=== PATIENT | female | born 1955 | race Caucasian/White ===

== ENCOUNTER 2022-06-30 11:46 | Inpatient (IN) | payer OTHER ==
[2022-06-30] MEDS ORDERED: ONDANSETRON 4 MG/2 ML VIAL ONE ×2 (12:08→17:19)
[2022-06-30] MEDS ORDERED: FAMOTIDINE 20 MG/2 ML VIAL IV ONE (12:08)
[2022-06-30] MEDS ORDERED: NA CHLORIDE 0.9% 1,000 ML ONE ×2 (12:08→14:34)
[2022-06-30 12:27] LABS: Urine Blood Negative (Negative); Urine Glucose Negative (Negative); Urine Protein 1+ (Negative); Urine pH 7.5 (5.0-7.0)
[2022-06-30 12:34] LABS: Absolute Lymphocytes (CBC) 1.4 K/uL (0.7-4.9); Lymphocytes % 11.5 % (15.3-44.8); MPV 8.8 fL (7.6-11.3)
[2022-06-30 12:38] LABS: Urine Crystals Unidentified Few /HPF (None Seen); Urine Mucus Slight /HPF (None Seen)
[2022-06-30 12:50] LABS: Albumin 4.4 g/dL (3.4-5.0); Bilirubin Total 0.7 mg/dL (0.2-1.0); Protein, Total 8.2 g/dL (6.4-8.2)
[2022-06-30] MEDS ORDERED: PROMETHAZINE INJ 25 MG/ML AMP ONE (13:18)
[2022-06-30] MEDS ORDERED: MORPHINE 4 MG/ML SYR ONE (13:18)
[2022-06-30] MEDS ORDERED: NA CHLORIDE 0.9% 50 ML IV ONE (13:19)
--- NOTE | 2022-06-30 13:39 | RAD REPORT ---
EXAM DESCRIPTION: CT - Abdomen Pelvis W Contrast - 06/30/2022 1:06 pm CLINICAL HISTORY: Abdominal pain COMPARISON: none. TECHNIQUE: Computed axial tomography of the abdomen pelvis was obtained. 100 cc Isovue-300 was admin istered intravenously. Oral contrast was not requested which limits evaluation of bowel and appendix All CT scans are performed using dose optimization technique as appropriate and may include automated exposure control or mA/KV adjustment according to patient size. FINDINGS: Mild fatty liver with small cysts. The spleen, pancreas, adrenals and kidneys are unremarkable. Mildly dilated jejunum and proximal ileum. Mid and distal ileum decompressed. Small to moderate amoun t ascites within the pelvis. . There is no evidence of diverticulitis. Small umbilical hernia IMPRESSION: These findings most likely represent a small bowel obstruction
--- NOTE | 2022-06-30 14:06 | ER ---
Nurse's Notes [facility] Name: Aurora Guy Age: 67 yrs Sex: Female : 1955 Arrival Date: 06/30/2022 Time: 11:47 Bed 7 Private MD: Diagnosis: Small Bowel Obstruction Presentation: 06/30 11:52 Chief complaint: N/V and upper abdominal pain since last night. Coronavirus screen: At this time, the client does not indicate any symptoms associated with coronavirus-19. Ebola Screen: No symptoms or risks identified at this time. Risk Assessment: Do you want to hurt yourself or someone else? Patient reports no desire to harm self or others. Onset of symptoms was June 29, 2022. 11:52 Method Of Arrival: Ambulatory 11:52 Acuity: JEYSON 3 hb 12:30 Initial Sepsis Screen: Does the patient meet any 2 criteria? No. Patient's initial mb8 sepsis screen is negative. Does the patient have a suspected source of infection? No. Patient's initial sepsis screen is negative. Triage Assessment: 12:15 General: Appears uncomfortable, ill, Behavior is cooperative, appropriate for age, mb8 restless. Historical: - Allergies: 11:54 No Known Allergies; hb - Social history:: Smoking status: Patient denies any tobacco usage or history of. Screenin:29 Abuse screen: Denies threats or abuse. Denies injuries from another. Nutritional mb8 screening: No deficits noted. Tuberculosis screening: No symptoms or risk factors identified. Fall Risk None identified. Assessment: 12:15 Pain: Complains of pain in abdomen Pain currently is 10 out of 10 on a pain scale. mb8 Quality of pain is described as sharp. GI: Bowel sounds present X 4 quads. Abd is soft Reports upper abdominal pain, nausea, vomiting, Patient currently denies diarrhea. GI: Patient currently denies bloating, bloody stool, constipation, incontinence, rectal bleeding. : No deficits noted. Denies burning with urination, cramping discharge, inability to void, incontinence, pain urinary frequency, urgency, vaginal bleeding, vaginal itching. 12:36 Reassessment: Patient and/or family updated on plan of care and expected duration. Pain mb8 level reassessed. Patient is alert, oriented x 3, equal unlabored respirations, skin warm/dry/pink. Patient states feeling better. 13:55 Reassessment: Patient and/or family updated on plan of care and expected duration. Pain mb8 level reassessed. Patient is alert, oriented x 3, equal unlabored respirations, skin warm/dry/pink. Updated patient on plan of care. Morphine and Phenergan have decreased pain and nausea. Vital Signs: 11:52 BP 165 / 92; Pulse 95; Resp 18; Temp 98.3; Pulse Ox 99% on R/A; Weight 72.57 kg; Height hb 5 ft. 4 in. (162.56 cm); Pain 10/10; 12:36 BP 166 / 77; Pulse 76; Resp 20; Pulse Ox 95% on R/A; mb8 12:45 BP 161 / 77; Pulse 84; Resp 16; Pulse Ox 96% ; mb8 13:56 BP 143 / 69; Pulse 67; Resp 16; Pulse Ox 97% on R/A; Pain 0/10; mb8 18:25 BP 154 / 60; Pulse 84; mb8 11:52 Body Mass Index 27.46 (72.57 kg, 162.56 cm) hb ED Course: 11:47 Patient arrived in ED. am2 11:54 Triage completed. hb 11:55 [facility] 11:55 Thierry Bowen MD is Attending Physician. [facility] 12:05 Jermain Shetty, DESIRE is Primary Nurse. mb8 12:15 Patient has correct armband on for positive identification. Placed in gown. Bed in low mb8 position. Call light in reach. Side rails up X2. Client placed on continuous cardiac and pulse oximetry monitoring. NIBP monitoring applied. Warm blanket given. 12:15 Arm band placed on. mb8 12:25 Inserted saline lock: 20 gauge in right antecubital area, using aseptic technique. mb8 Blood collected. 12:29 No provider procedures requiring assistance completed. mb8 13:[address] via wheelchair. mb8 13:08 CT Abd/Pelvis - IV Contrast Only In Process Unspecified. EDMS 14:06 Sheron Gomez MD is Hospitalizing Provider. [facility] Administered Medications: 12:23 Drug: Zofran (Ondansetron) 4 mg Route: IVP; Site: right antecubital; mb8 12:25 Drug: NS 0.9% 1000 ml Route: IV; Rate: 1 bolus; Site: right antecubital; mb8 12:25 Drug: Pepcid (famotidine) 20 mg Route: IVP; Site: right antecubital; mb8 13:25 Drug: morphine 4 mg Route: IVP; Infused Over: 4 mins; Site: right antecubital; mb8 14:12 Follow up: Response: No adverse reaction; Pain is decreased; RASS: Alert and Calm (0) mb8 13:29 Drug: Phenergan (promethazine) 12.5 mg Route: IM; Site: left deltoid; mb8 14:13 Follow up: Response: No adverse reaction; Nausea is decreased mb8 14:25 Drug: Zosyn (piperacillin-tazobactam) 3.375 grams Route: IVPB; Infused Over: 60 mins; mb8 Site: right antecubital; 15:00 Follow up: IV Status: Completed infusion mb8 Medication: 12:30 VIS not applicable for this client. 8 Outcome: 14:06 Decision to Hospitalize by Provider. Kashif 17:36 Admitted to Med/surg accompanied by tech, via wheelchair, room 414, with chart. mb8 17:36 Condition: stable 18:29 Patient left the ED. mb8 Signatures: Dispatcher [employer] EDMS Angela Aragon, RN RN Carmencita Schultz am2 Rebecca Reno, SPIKE DRIVER SPIKE DRIVER Jermain Narayanan RN RN mb8
--- NOTE | 2022-06-30 14:07 | EDPHYS ---
Physician Documentation [facility] Name: Aurora Guy Age: 67 yrs Sex: Female : 1955 Arrival Date: 06/30/2022 Time: 11:47 Bed 7 Private MD: ED Physician Thierry Bowen HPI: 06/30 12:00 This 67 yrs old Female presents to ER via Ambulatory with complaints of Abdominal Pain, jh7 Nausea/Vomiting. 12:00 The patient presents with abdominal pain in the upper abdomen. Onset: The jh7 symptoms/episode began/occurred last night. Associated signs and symptoms: Pertinent positives: nausea and vomiting, Pertinent negatives: diarrhea. The symptoms are described as burning. Historical: - Allergies: 11:54 No Known Allergies; hb - Social history:: Smoking status: Patient denies any tobacco usage or history of. ROS: 12:00 Constitutional: Negative for fever, chills, and weight loss, Eyes: Negative for injury, jh7 pain, redness, and discharge, ENT: Negative for injury, pain, and discharge, Cardiovascular: Negative for chest pain, palpitations, and edema, Respiratory: Negative for shortness of breath, cough, wheezing, and pleuritic chest pain, Back: Negative for injury and pain, MS/Extremity: Negative for injury and deformity, Skin: Negative for injury, rash, and discoloration, Neuro: Negative for headache, weakness, numbness, tingling, and seizure. 12:00 Abdomen/GI: Positive for abdominal pain, nausea and vomiting, Negative for diarrhea, constipation. 12:00 All other systems are negative. Exam: 12:00 Constitutional: This is a well developed, well nourished patient who is awake, alert, jh7 and in no acute distress. Head/Face: Normocephalic, atraumatic. Eyes: Pupils equal round and reactive to light, extra-ocular motions intact. Lids and lashes normal. Conjunctiva and sclera are non-icteric and not injected. Cornea within normal limits. Periorbital areas with no swelling, redness, or edema. Neck: Trachea midline, no thyromegaly or masses palpated, and no cervical lymphadenopathy. Supple, full range of motion without nuchal rigidity, or vertebral point tenderness. No Meningismus. Cardiovascular: Regular rate and rhythm with a normal S1 and S2. No gallops, murmurs, or rubs. Normal PMI, no JVD. No pulse deficits. Respiratory: Lungs have equal breath sounds bilaterally, clear to auscultation and percussion. No rales, rhonchi or wheezes noted. No increased work of breathing, no retractions or nasal flaring. Back: No spinal tenderness. No costovertebral tenderness. Full range of motion. Skin: Warm, dry with normal turgor. Normal color with no rashes, no lesions, and no evidence of cellulitis. MS/ Extremity: Pulses equal, no cyanosis. Neurovascular intact. Full, normal range of motion. Neuro: Awake and alert, GCS 15, oriented to person, place, time, and situation. Motor strength 5/5 in all extremities. Sensory grossly intact. Normal gait. 12:00 Abdomen/GI: Inspection: abdomen appears normal, Bowel sounds: normal, Palpation: soft, mild abdominal tenderness, in the right upper quadrant and left upper quadrant, Actively vomiting. Vital Signs: 11:52 BP 165 / 92; Pulse 95; Resp 18; Temp 98.3; Pulse Ox 99% on R/A; Weight 72.57 kg; Height hb 5 ft. 4 in. (162.56 cm); Pain 10/10; 12:36 BP 166 / 77; Pulse 76; Resp 20; Pulse Ox 95% on R/A; mb8 12:45 BP 161 / 77; Pulse 84; Resp 16; Pulse Ox 96% ; mb8 13:56 BP 143 / 69; Pulse 67; Resp 16; Pulse Ox 97% on R/A; Pain 0/10; mb8 18:25 BP 154 / 60; Pulse 84; mb8 11:52 Body Mass Index 27.46 (72.57 kg, 162.56 cm) hb MDM: 11:55 Patient medically screened. [facility] 13:50 Differential diagnosis: appendicitis, bowel obstruction, gastritis, Peritonitis. Data [facility] reviewed: vital signs, nurses notes, lab test result(s), radiologic studies, CT scan. Data interpreted: Pulse oximetry: is 97 %. Interpretation: normal. Counseling: I had a detailed discussion with the patient and/or guardian regarding: the historical points, exam findings, and any diagnostic results supporting the discharge/admit diagnosis, the need for further work-up and treatment in the hospital. Physician consultation: Carlos Mendes MD was contacted at 13:50, regarding admission, and will see patient would like admission per Dr. Sheron Gomez MD would like further tests performed, Abdominal upright x-ray for the morning, would like medications started, Broad-spectrum antibiotic. 06/30 12:03 Order name: CBC with Diff; Complete Time: 12:43 7 06/30 12:03 Order name: CMP; Complete Time: 12:58 7 06/30 12:03 Order name: Lipase; Complete Time: 12:58 7 06/30 12:03 Order name: Urine Microscopic Only; Complete Time: 12:43 7 06/30 12:03 Order name: Flu; Complete Time: 12:58 [facility] 06/30 12:27 Order name: Urine Dipstick-Ancillary; Complete Time: 12:43 EDMS 06/30 14:23 Order name: CBC with Automated Diff EDMS 06/30 14:23 Order name: CBC with Automated Diff EDMS 06/30 14:23 Order name: Comprehensive Metabolic Panel EDMS 06/30 14:23 Order name: Comprehensive Metabolic Panel EDMS 06/30 14:23 Order name: Magnesium EDMS 06/30 14:23 Order name: Magnesium EDMS 06/30 14:23 Order name: Phosphorus EDMS 06/30 14:23 Order name: Phosphorus EDMS 06/30 12:03 Order name: CT Abd/Pelvis - IV Contrast Only; Complete Time: 13:41 [facility] 06/30 12:03 Order name: IV Saline Lock; Complete Time: 12:27 [facility] 06/30 12:03 Order name: Labs collected and sent; Complete Time: 12:27 [facility] 06/30 12:03 Order name: Urine Dipstick-Ancillary (obtain specimen); Complete Time: 12:27 [facility] 06/30 14:23 Order name: CONS Physician Consult EDMS 06/30 14:23 Order name: NPO EDMS 06/30 14:23 Order name: Abdomen 1 View (KUB) EDMS 06/30 15:23 Order name: SARS RAPID aa5 06/30 16:10 Order name: SARS-COV-2 Antigen Rapid EDMS Administered Medications: 12:23 Drug: Zofran (Ondansetron) 4 mg Route: IVP; Site: right antecubital; mb8 12:25 Drug: NS 0.9% 1000 ml Route: IV; Rate: 1 bolus; Site: right antecubital; mb8 12:25 Drug: Pepcid (famotidine) 20 mg Route: IVP; Site: right antecubital; mb8 13:25 Drug: morphine 4 mg Route: IVP; Infused Over: 4 mins; Site: right antecubital; mb8 14:12 Follow up: Response: No adverse reaction; Pain is decreased; RASS: Alert and Calm (0) 8 13:29 Drug: Phenergan (promethazine) 12.5 mg Route: IM; Site: left deltoid; mb8 14:13 Follow up: Response: No adverse reaction; Nausea is decreased mb8 14:25 Drug: Zosyn (piperacillin-tazobactam) 3.375 grams Route: IVPB; Infused Over: 60 mins; mb8 Site: right antecubital; 15:00 Follow up: IV Status: Completed infusion mb8 Disposition Summary: 06/30/22 14:06 Hospitalization Ordered Hospitalization Status: Inpatient Admission [facility] Provider: Sheron Gomez [facility] Condition: Stable [facility] Problem: new [facility] Symptoms: have improved [facility] Bed/Room Type: Standard [facility] Room Assignment: [facility](06/30/22 16:35) Diagnosis - Small Bowel Obstruction [facility] Forms: - Medication Reconciliation Form [facility] - SBAR form [facility] Addendum: 07/05/2022 04:01 Co-signature as Attending Physician, Thierry Bowen MD I agree with the assessment and c [facility] plan of care. Signatures: Dispatcher [employer] Jackeline Rivera RN RN dw Anderson, Corey, MD MD cha Baxter, Heather, RN RN Rebecca Reno, TOOLING SUPERVISOR TOOLING SUPERVISOR [facility] Jermain Shetty RN RN mb8 Corrections: (The following items were deleted from the chart) 06/30 16:35 14:06 [facility] 17:52 13:41 NG Tube ordered. [facility]
[2022-06-30] MEDS ORDERED: LIDOCAINE VISCOUS 2% SOLN 15 ML UDC ONE (14:14)
[2022-06-30] MEDS ORDERED: PIPERACIL/TAZO 3.375 GM VIAL IV ONE (14:14)
[2022-06-30] MEDS ORDERED: NA CHLORIDE 0.9% 100 ML IV ONE (14:15)
[2022-06-30] MEDS ORDERED: ENOXAPARIN 40 MG/0.4 ML SQ ONE (14:34)
[2022-06-30] MEDS ORDERED: Levofloxacin500mg IV 500 MG/100 ML BAG IV ONE (14:34)
[2022-06-30] MEDS: NA CHLORIDE 0.9% 1,000 ML IV SCH ×2 (14:59→23:00)
[2022-06-30] MEDS: ENOXAPARIN 40 MG/0.4 ML SQ SCH (15:00)
[2022-06-30] MEDS: Levofloxacin500mg IV 500 MG/100 ML BAG IV SCH (15:03)
[2022-06-30 15:15] VITALS: BMI 27.4
[2022-06-30 16:10] LABS: SARS-CoV-2 Antigen Rapid Res Negative (Negative)
--- NOTE | 2022-06-30 16:33 | P.CNS ---
Date of Consult: 06/30/22 Reason for consult: Small bowel obstruction History of present illness: Patient is a 67-year-old female comes in with 1 day history diffuse abdominal pain associated with nausea and vomiting. Her last bowel movement was this a.m. Patient has not had a episode of flatus today. Patient has not had similar episodes in the past. After medication, her vomiting has subsided and her nausea has improved. Patient pain is better as well. Patient denies sore throat, runny nose, cough, headaches, dizziness, fever or chills. Review of systems: Otherwise unremarkable Past medical history: Hypertension and a brain aneurysm which does not require any intervention according to the patient Past surgical history: Ovarian cyst excision, hysterectomy, bilateral salpingo- oophorectomy, appendectomy Allergies: None Social history: Patient does not smoke or drink alcohol Family history: Noncontributory Vital signs: Stable, afebrile Physical exam: Awake alert oriented x3 Head and neck exam: Cranial nerves II through XII grossly within normal limits, no neck masses, no JVD, throat clear and neck supple Chest: Clear Heart: S1-S2 Abdomen: Soft, mild distention, minimal diffuse tenderness, slightly hypoactive bowel sounds with no evidence of peritonitis Extremity: Neurovascular intact, nontender Neuro: Nonfocal Diagnostic data: White count is 12.5, electrolytes are within normal limits and CT of the abdomen and pelvis shows dilatation of the proximal small bowel mild in nature with normal size ileum. Small amount of ascites is seen as well. Assessment: Ileus versus small bowel obstruction. Patient probably has partial bowel obstruction. Plan/recommendation: Admit, n.p.o., IV fluids, IV antibiotics, NG tube if patien t has the need to vomit and serial abdominal exams. We will repeat the abdominal x-ray in the morning. Hopefully, patient will improve with conservative measures, there is a small chance patient may require surgical intervention. Plan of care discussed in detail with the patient. We will follow the patient closely. CC: Dr. Link's office
[2022-06-30] MEDS ORDERED: HYDROMORPHONE HCL 0.5 MG/0.5 ML INJ ONE (17:19)
[2022-06-30] MEDS: ONDANSETRON 4 MG/2 ML VIAL IV PRN (17:34)
[2022-06-30] MEDS: HYDROMORPHONE HCL 0.5 MG/0.5 ML INJ IV PRN (17:34)
[2022-06-30] MEDS: METRONIDAZOLE 500mg IVPB 500 MG/100 ML BAG IV SCH (18:48)
[2022-07-01 01:37] VITALS: O2SAT 98
[2022-07-01 04:55] LABS: Absolute Lymphocytes (CBC) 1.6 K/uL (0.7-4.9); Hematocrit 34.2 % (36.0-45.0); Lymphocytes % 20.2 % (15.3-44.8); MCV 92.1 fL (80-100); RBC Red Blood Cell Count 3.72 M/uL (3.86-4.86)
[2022-07-01 05:15] LABS: Albumin 2.9 g/dL (3.4-5.0); Bilirubin Total 0.4 mg/dL (0.2-1.0); Phosphorus 2.5 mg/dL (2.5-4.9); Potassium 3.5 mmol/L (3.5-5.1); Protein, Total 5.6 g/dL (6.4-8.2)
[2022-07-01] MEDS: METRONIDAZOLE 500mg IVPB 500 MG/100 ML BAG IV SCH ×4 (05:35→18:46)
[2022-07-01] MEDS: NA CHLORIDE 0.9% 1,000 ML IV SCH ×2 (05:36→15:21)
[2022-07-01] MEDS ORDERED: KCL 20 MEQ/100 mL IVPB 20 MEQ/100 ML BAG IV SCH (06:00)
--- NOTE | 2022-07-01 08:18 | RAD REPORT ---
EXAM DESCRIPTION: RAD - Abdomen W Erect - 07/01/2022 6:32 am CLINICAL HISTORY: Follow-up small bowel obstruction Pain COMPARISON: Abdomen Pelvis W Contrast dated 06/30/2022 FINDINGS: There is moderate stool present throughout the colon. A few mildly prominent small bowel l oops in the left abdomen seen. Overall, this appears improved since prior CT. No suspicious calcifica tions. No significant bony findings. No pneumoperitoneum. IMPRESSION: Mild improvement in the bowel gas pattern seen since comparative study.
--- NOTE | 2022-07-01 08:22 | P.PN ---
Date of Service: 07/01/22 Subjective: Patient is passing gas. Pain is better. Patient has not had a bowel movement. Objective: Vital signs stable, afebrile. White count is normal. Abdominal x- ray shows some improvement. Abdomen: Soft, nondistended, bowel sounds present, no peritonitis and no tenderness Assessment: Small bowel obstructionimproving Plan: Sips of clear liquids and advace slowly as tolerated. Ambulate. Anticipate discharge in 24 to 48 hours. CC:
[2022-07-01] MEDS: ENOXAPARIN 40 MG/0.4 ML SQ SCH (08:23)
[2022-07-01] MEDS: ACETAMINOPHEN 500 MG TAB PO PRN ×2 (08:23→16:29)
--- NOTE | 2022-07-01 11:48 | P.HP ---
Certification for Inpatient Patient admitted to: Inpatient With expected LOS: >2 Midnights Patient will require the following post-hospital care: None Practitioner: I am a practitioner with admitting privileges, knowledge of patient current condition, hospital course, and medical plan of care. Services: Services provided to patient in accordance with Admission requirements found in Title 42 Section 412.3 of the Code of Federal Regulations Patient History Date of Service: 06/30/22 Reason for admission: Small bowel obstruction History of Present Illness: Patient is a 67-year-old female who came to the hospital with abdominal pain. Patient was found to have a small-bowel obstruction. Patient has had multiple gynecologic surgeries. Her last surgery was an appendectomy which she states was secondary to adhesions. She started having intractable nausea and vomiting as well as abdominal pain yesterday evening. She came into the emergency room t jose with vomiting and abdominal pain as well. Pain was mainly in the lower abdominal quadrants. CT scan revealed small bowel obstruction. NG tube was placed in the emergency room. Patient was admitted for monitoring of her small bowel obstruction. Patient's last bowel movement was this morning. But she has not had any flatus since that time. She will be admitted for inpatient hospitalization. Allergies No Known Allergies Allergy (Verified 06/30/22 14:30) Home Medications: Lisinopril [Zestril] 5 mg PO DAILY 07/01/22 - Past Medical/Surgical History Past Medical History: Patient denies medical history -: Hysterectomy and bilateral oophorectomy -: appendectomy - Family History Father Family History: Reviewed- Non-Contributory - Social History Smoking Status: Never smoker Alcohol use: No CD- Drugs: No Review of Systems 10-point ROS is otherwise unremarkable Physical Examination - Vital Signs Temperature: 96.6 F Blood Pressure: 149/64 Pulse: 68 Respirations: 20 Pulse Ox (%): 96 - Physical Exam General: Alert, In no apparent distress, Oriented x3 HEENT: Atraumatic, PERRLA, Mucous membr. moist/pink, EOMI, Sclerae nonicteric Neck: Supple, 2+ carotid pulse no bruit, No LAD, Without JVD or thyroid abnorma lity Respiratory: Clear to auscultation bilaterally, Normal air movement Cardiovascular: Regular rate/rhythm, Normal S1 S2 Gastrointestinal: No tenderness, No masses, No rebound, No guarding, Absent bowel sounds Musculoskeletal: No clubbing, No swelling, No tenderness Integumentary: No rashes Neurological: Normal gait, Normal speech, Normal strength at 5/5 x4 extr, Normal tone, Sensation intact, Cranial nerves 3-12 intact, Normal affect Lymphatics: No axilla or inguinal lymphadenopathy - Studies Laboratory Data (last 24 hrs) 06/30/22 12:20: Sodium 137, Potassium 4.0, BUN 11, Creatinine 1.15, Glucose 127 H, Total Bilirubin 0.7, AST 45 H, ALT 63, Alkaline Phosphatase 92, Lipase 141 06/30/22 12:20: WBC 12.50 H, Hgb 15.7 H, Hct 45.0, Plt Count 330 Microbiology Data (last 24 hrs): 06/30/22 12:20 Nasopharnyx Influenza Type A Antigen Screen - Final 06/30/22 12:20 Nasopharnyx Influenza Type B Antigen Screen - Final Assessment & Plan - Problems (Diagnosis) (1) Small bowel obstruction Current Visit: Yes Status: Acute - Plan -management per surgery -DVT prophylaxis -IV hydration and IV antibiotics -NPO -strict blood pressure and blood sugar control -monitor electrolytes and blood count closely -pain control Discharge Plan: Home Plan to discharge in: Greater than 2 days - Advance Directives Does patient have a Living Will: No Does patient have a Durable POA for Healthcare: No - Code Status/Comfort Care Code Status Assessed: Yes Code Status: Full Code Critical Care: No Time Spent Managing PTS Care (In Minutes): 45
[2022-07-01] MEDS: Levofloxacin500mg IV 500 MG/100 ML BAG IV SCH (15:21)
[2022-07-01] MEDS: HYDROMORPHONE HCL 0.5 MG/0.5 ML INJ IV PRN (15:22)
[2022-07-01] MEDS: ONDANSETRON 4 MG/2 ML VIAL IV PRN (16:30)
--- NOTE | 2022-07-01 23:49 | P.PN ---
Subjective Date of Service: 07/01/22 Subjective: Improving Review of Systems 10-point ROS is otherwise unremarkable Physical Examination - Vital Signs Temperature: 96.6 F Blood Pressure: 149/64 Pulse: 68 Respirations: 20 Pulse Ox (%): 96 - Physical Exam General: Alert, In no apparent distress HEENT: Atraumatic, PERRLA, EOMI Neck: Supple, JVD not distended Respiratory: Clear to auscultation bilaterally, Normal air movement Cardiovascular: Regular rate/rhythm, Normal S1 S2 Gastrointestinal: Normal bowel sounds, No tenderness Musculoskeletal: No tenderness Integumentary: No rashes Neurological: Normal speech, Normal tone, Normal affect Lymphatics: No axilla or inguinal lymphadenopathy - Studies Medications List Reviewed: Yes Assessment & Plan - Problems (Diagnosis) (1) Small bowel obstruction Status: Acute - Plan -management per surgery -DVT prophylaxis -IV hydration and IV antibiotics -REMOVED NG TUBE AND STARTED ON CLEAR LIQUIDS -strict blood pressure and blood sugar control -monitor electrolytes and blood count closely -pain control - Advance Directives Does patient have a Living Will: No Does patient have a Durable POA for Healthcare: No - Code Status/Comfort Care Code Status: Full Code
[2022-07-02] MEDS: ACETAMINOPHEN 500 MG TAB PO PRN ×2 (00:16→08:38)
[2022-07-02] MEDS: METRONIDAZOLE 500mg IVPB 500 MG/100 ML BAG IV SCH ×2 (00:17→05:20)
[2022-07-02] MEDS: NA CHLORIDE 0.9% 1,000 ML IV SCH ×2 (00:19→08:39)
[2022-07-02] MEDS: ONDANSETRON 4 MG/2 ML VIAL IV PRN (01:16)
[2022-07-02] MEDS ORDERED: MORPHINE 2 MG/ML SYR IV PRN (01:20)
[2022-07-02 06:37] LABS: Potassium 3.6 mmol/L (3.5-5.1)
[2022-07-02] MEDS ORDERED: POTASSIUM CL SA 10 MEQ TAB PO ONE (08:00)
[2022-07-02] MEDS: ENOXAPARIN 40 MG/0.4 ML SQ SCH (08:39)
--- NOTE | 2022-07-02 10:47 | P.PN ---
Date of Service: 07/02/22 Subjective: Patient is tolerating clear liquids. Patient is passing gas. Patient is having bowel movements. Objective: Vital signs stable, afebrile. Abdomen: Soft, nondistended, bowel sounds present, no peritonitis and no tenderness Assessment: Small bowel obstructionimproving Plan: Advance diet to GI soft and if tolerated patient cleared for discharge. Case discussed with Dr. Gomez. CC:
[2022-07-02 21:17] VITALS: BP 149/64; TEMP 96.6
--- NOTE | 2022-07-02 21:17 | P.DS ---
Discharge Date: 07/02/22 Disposition: ROUTINE DISCHARGE Discharge Condition: GOOD Reason for Admission: Small bowel obstruction Consultations: General surgeon - Problems (1) Small bowel obstruction Status: Acute Brief History of Present Illness: Patient is a 67-year-old female who came to the hospital with abdominal pain. Patient was found to have a small-bowel obstruction. Patient has had multiple gynecologic surgeries. Her last surgery was an appendectomy which she states was secondary to adhesions. She started having intractable nausea and vomiting as well as abdominal pain yesterday evening. She came into the emergency room today with vomiting and abdominal pain as well. Pain was mainly in the lower abdominal quadrants. CT scan revealed small bowel obstruction. NG tube was placed in the emergency room. Patient was admitted for monitoring of her small bowel obstruction. Patient's last bowel movement was this morning. But she has not had any flatus since that time. She will be admitted for inpatient hospitalization. Hospital Course: patient has done well during hospitalization and is clinically stable for discharge with outpatient follow-up. Patient not wanting any pain medication at this time. She will see General surgery in 1-2 weeks. Vital Signs/Physical Exam: Temp Pulse Resp BP Pulse Ox 96.6 F L 68 20 149/64 H 96 07/02/22 21:17 07/02/22 21:17 07/02/22 21:17 07/02/22 21:17 07/02/22 21:17 General: Alert, In no apparent distress, Oriented x3 Laboratory Data at Discharge: WBC 7.70 K/uL (4.3-10.9) 07/01/22 04:19 Hgb 11.9 g/dL (12.0-15.0) L D 07/01/22 04:19 Hct 34.2 % (36.0-45.0) L 07/01/22 04:19 Plt Count 202 K/uL (152-406) D 07/01/22 04:19 Sodium 141 mmol/L (136-145) 07/02/22 06:13 Potassium 3.6 mmol/L (3.5-5.1) 07/02/22 06:13 BUN 6 mg/dL (7-18) L 07/02/22 06:13 Creatinine 0.86 mg/dL (0.55-1.3) 07/02/22 06:13 Glucose 99 mg/dL (74-106) 07/02/22 06:13 Phosphorus 2.5 mg/dL (2.5-4.9) 07/01/22 04:19 Magnesium 2.0 mg/dL (1.8-2.4) 07/01/22 04:19 Total Bilirubin 0.4 mg/dL (0.2-1.0) 07/01/22 04:19 AST 24 U/L (15-37) 07/01/22 04:19 ALT 42 U/L (12-78) 07/01/22 04:19 Alkaline Phosphatase 55 U/L (45-117) D 07/01/22 04:19 Lipase 141 U/L (73-393) 06/30/22 12:20 Home Medications: Lisinopril [Zestril] 5 mg PO DAILY 07/01/22 Ciprofloxacin HCl [Cipro] 500 mg PO BID #10 tab 07/02/22 metroNIDAZOLE [Flagyl] 500 mg PO Q8H #14 tab 07/02/22 New Medications: Ciprofloxacin HCl [Cipro] 500 mg PO BID #10 tab metroNIDAZOLE [Flagyl] 500 mg PO Q8H #14 tab Physician Discharge Instructions: Follow-up with Dr. Castillo in 1 to 2 weeks Follow-up with surgery, Dr. Mendes in 1 to [address] Gomez at [phone] if any questions regarding hospital stay Please call nursing station at [phone] if any nursing or medication questions Return to the emergency room if symptoms worsen Diet: Regular Activity: Fall precautions Followup: Carlos Mendes MD [ACTIVE - CAN ADMIT] - 1-2 Weeks (Call to make appointment) Placido Castillo MD [Primary Care Provider] - 1-2 Weeks (Call to make appointment) Time spent managing pt's care (in minutes): 35
== END 2022-07-02 14:20 | disposition home or self-care (01) | DRG 390 ==
LOC: ER 11:46 → ERHOLD 14:17 → 4TH 17:37
PROVIDERS: ADMIT Hospitalist; ATTEND Hospitalist
DX: K56.600 Partial intestinal obstruction, unspecified as to cause (principal); I10 Essential (primary) hypertension; I67.1 Cerebral aneurysm, nonruptured; Z90.710 Acquired absence of both cervix and uterus; Z90.722 Acquired absence of ovaries, bilateral; Z90.79 Acquired absence of other genital organ(s); Z20.822 Contact with and (suspected) exposure to COVID-19
CPT/HCPCS: 36415; 74019; 74177; 80048; 80053; 81003; 81015; 83690; 83735; 84100; 85025; 87804; 87811; 96365; 96372; 96375; 99285; J1170; J1650; J2270; J2405; J2543; J2550; J3480; J7030; Q9967